=== PATIENT | male | born 1955 | race Asian ===

== ENCOUNTER 2019-06-16 22:27 | Emergency (ER) | payer BC, MEDICARE ==
[~2019-06-16] VITALS: Ht 167.6 cm; Wt 51.3 kg
--- NOTE | 2019-06-16 22:45 | Emergency Room Report ---
History of Present Illness General Chief Complaint: Abdominal Pain Source: Patient Present Illness HPI Patient presents with abdominal pain. It is been going on for many days. Has a history of stomach cancer and undergoing chemotherapy. He is due to have a CT of the abdomen tomorrow however the pain became unbearable tonight. He rates the pain 10/10 at this time and constant left lower quadrant nonradiating. He was able to move his bowels earlier today without any difficulty. He denies any dysuria or fevers or chills. There is no nausea or vomiting. He does have hydrocodone at home and they help the pain transiently but then comes back severely. No fevers, chills, sore throat, chest pain, palpitations, dysuria, shortness of breath, joint pain, rashes, depression, anxiety, visual changes, dizziness, headache. COVID-19 risk:Travel to affect: No Has patient experienced lee: No Allergies: Coded Allergies: No Known Allergies (Unverified , 06/16/19) Patient History Past Medical History: see triage record, other - Stomach cancer Social History: Denies: smoking Social History Narrative From home Reviewed Nursing Documentation: PMH: Agreed; PSxH: Agreed Nursing Documentation-PMH Hx Cancer: Yes - stomach Review of Systems All Other Systems: negative except mentioned in HPI Physical Exam Vital Signs Date Time Temp Pulse Resp B/P (MAP) Pulse Ox O2 Delivery O2 Flow Rate FiO2 06/16/19 22:29 97.9 67 18 131/82 (98) 98 Room Air Sp02 EP Interpretation: reviewed, normal General Appearance: well appearing, no apparent distress, GCS 15, thin Head: normocephalic, atraumatic Eyes: bilateral eye normal inspection, bilateral eye PERRL, bilateral eye EOMI ENT: moist mucus membranes Neck: supple Respiratory: lungs clear, normal breath sounds Cardiovascular #1: regular rate, rhythm Cardiovascular #2: 2+ radial (R) Gastrointestinal: normal inspection, normal bowel sounds, no mass, non- distended, no guarding, no rebound, tenderness - Diffuse, scaphoid Genitourinary: no CVA tenderness Musculoskeletal: back normal, normal range of motion, gait/station normal Neurologic: alert, oriented x3, grossly normal Psychiatric: mood/affect normal Skin: no rash, warm/dry Medical Decision Making Diagnostic Impression: Primary Impression: Abdominal pain Qualified Codes: R10.84 - Generalized abdominal pain Additional Impression: History of stomach cancer ER Course Patient with history of stomach cancer presents with pain out of control. Differential includes pain related to cancer, diverticulitis, appendicitis, gastritis, pancreatitis amongst others. Evaluation with EKG, chest x-ray, CT of the abdomen and pelvis with contrast, labs. Patient treated with IV hydration and analgesia. Patient is nontoxic at this time and well-hydrated. Patient placed on the monitor worker. Repeat abdominal exam is indicated. Currently the patient has a nonsurgical abdomen. EKG normal sinus rhythm nonspecific ST-T wave changes rate 63. Chest x-ray no infiltrates and normal. Labs with normal white count, CMP and lipase. Urinalysis clear. Delay for CT due to oral contrast. CT without surgical pathology at this time. See full results below. Discussed results with patient. Patient remarkably improved with hydration and analgesia. Abdomen rate remains soft pain is decreased. Discussed the need to take copies of CT and labs to his doctor tomorrow. No medical emergency at this time. Patient stable for outpatient observation and treatment. Laboratory Tests Test 06/16/19 00:56 06/16/19 23:00 Urine Color Pale yellow Urine Appearance Clear Urine pH 6 (4.5-8.0) Urine Specific [place] 1.010 (1.005-1.035) Urine Protein Negative (NEGATIVE) Urine Glucose (UA) Negative (NEGATIVE) Urine Ketones Negative (NEGATIVE) Urine Blood Negative (NEGATIVE) Urine Nitrite Negative (NEGATIVE) Urine Bilirubin Negative (NEGATIVE) Urine Urobilinogen Normal MG/DL (0.0-1.0) Urine Leukocyte Esterase Negative (NEGATIVE) White Blood Count 5.4 K/UL (4.8-10.8) Red Blood Count 3.68 M/UL (4.70-6.10) L Hemoglobin 11.7 G/DL (14.2-18.0) L Hematocrit 33.7 % (42.0-52.0) L Mean Corpuscular Volume 92 FL (80-99) Mean Corpuscular Hemoglobin 31.7 PG (27.0-31.0) H Mean Corpuscular Hemoglobin Concent 34.6 G/DL (32.0-36.0) Red Cell Distribution Width 14.6 % (11.6-14.8) Platelet Count 220 K/UL (150-450) Mean Platelet Volume 5.3 FL (6.5-10.1) L Neutrophils (%) (Auto) 53.1 % (45.0-75.0) Lymphocytes (%) (Auto) 34.4 % (20.0-45.0) Monocytes (%) (Auto) 9.1 % (1.0-10.0) Eosinophils (%) (Auto) 2.1 % (0.0-3.0) Basophils (%) (Auto) 1.4 % (0.0-2.0) Prothrombin Time 9.8 SEC (9.30-11.50) Prothrombin Time INR 0.9 (0.9-1.1) Activated Partial Thromboplast Time 28 SEC (23-33) Sodium Level 146 MMOL/L (136-145) H Potassium Level 4.0 MMOL/L (3.5-5.1) Chloride Level 109 MMOL/L (98-107) H Carbon Dioxide Level 30 MMOL/L (21-32) Anion Gap 7 mmol/L (5-15) Blood Urea Nitrogen 15 mg/dL (7-18) Creatinine 0.8 MG/DL (0.55-1.30) Estimated Glomerular Filtration Rate > 60 mL/min (>60) Glucose Level 100 MG/DL (74-106) Calcium Level 9.0 MG/DL (8.5-10.1) Total Bilirubin 0.2 MG/DL (0.2-1.0) Aspartate Amino Transferase (AST) 31 U/L (15-37) Alanine Aminotransferase (ALT) 23 U/L (12-78) Alkaline Phosphatase 67 U/L (46-116) Troponin I 0.000 ng/mL (0.000-0.056) Total Protein 7.3 G/DL (6.4-8.2) Albumin 3.7 G/DL (3.4-5.0) Globulin 3.6 g/dL Albumin/Globulin Ratio 1.0 (1.0-2.7) Lipase 129 U/L (73-393) EKG Diagnostic Results Rate: normal Rhythm: NSR ST Segments: no acute changes Rhythm Strip Diag. Results EP Interpretation: yes Rhythm: NSR, no PVC's, no ectopy Chest X-Ray Diagnostic Results Chest X-Ray Diagnostic Results : Chest X-Ray Ordered: Yes # of Views/Limited/Complete: 1 View Indication: Other EP Interpretation: Yes Interpretation: no consolidation, no effusion, no pneumothorax Impression: No acute disease Electronically Signed by: Electronically signed by Ady Han MD CT/MRI/US Diagnostic Results CT/MRI/US Diagnostic Results : Imaging Test Ordered: abd/pelvis Impression Moderate free fluid surrounding the liver. Otherwise normal liver, gallbladder bilateral kidneys, spleen. Atrophy of the pancreas. Fluid collection or mass at the superior aspect of the pancreatic border. There is a second similar small round structure medial to the first. This could represent lymphadenopathy or sequela of pancreatic cysts or neoplasm/metastatic disease. Normal bilateral adrenal glands. Unremarkable small bowel. Areas of scattered thickening of the wall throughout the colon consistent with colitis. Multilevel diverticulosis. Normal appendix. Mild free fluid in the pelvis. Degenerative disease in the spine. Last Vital Signs Date Time Temp Pulse Resp B/P (MAP) Pulse Ox O2 Delivery O2 Flow Rate FiO2 06/17/19 06:11 98.2 75 19 134/84 98 Room Air Status: improved Disposition: HOME, SELF-CARE Condition: Improved Referrals: NON PHYSICIAN (PCP) Ady Han MD Jun 16, 2019 22:45
[2019-06-16] MEDS ORDERED: Morphine Sulfate 4mg/ml Inj (IV USE ONLY) ONE (23:21)
[2019-06-16 23:35] VITALS: BP 137/87
[2019-06-17 04:44] LABS: BASOPHILS % (AUTO) 1.4 % (0.0-2.0); EOSINOPHILS % (AUTO) 2.1 % (0.0-3.0); HEMATOCRIT 33.7 % (42.0-52.0); HEMOGLOBIN 11.7 G/DL (14.2-18.0); LYMPHOCYTES % (AUTO) 34.4 % (20.0-45.0); MEAN CORPUSCULAR VOLUME 92 FL (80-99); MONOCYTES % (AUTO) 9.1 % (1.0-10.0); NEUTROPHILS % (AUTO) 53.1 % (45.0-75.0); PLATELET COUNT 220 K/UL (150-450); RED BLOOD COUNT 3.68 M/UL (4.70-6.10); RED CELL DISTRIBUTION WIDTH 14.6 % (11.6-14.8); WHITE BLOOD COUNT 5.4 K/UL (4.8-10.8)
[2019-06-17 04:45] LABS: ALANINE AMINOTRANSFERASE 23 U/L (12-78); ALBUMIN 3.7 G/DL (3.4-5.0); ALKALINE PHOSPHATASE 67 U/L (46-116); ANION GAP 7 mmol/L (5-15); ASPARTATE AMINO TRANSFERASE 31 U/L (15-37); BILIRUBIN,TOTAL 0.2 MG/DL (0.2-1.0); BLOOD UREA NITROGEN 15 mg/dL (7-18); CARBON DIOXIDE 30 MMOL/L (21-32); CHLORIDE 109 MMOL/L (98-107); CREATININE 0.8 MG/DL (0.55-1.30); SODIUM 146 MMOL/L (136-145)
[2019-06-17 04:47] LABS: INR 0.9 (0.9-1.1)
[2019-06-17 05:23] LABS: APPEARANCE,URINE CLEAR; COLOR,URINE PALE YELLOW; GLUCOSE, URINE (UA) NEGATIVE (NEGATIVE); KETONES,URINE NEGATIVE (NEGATIVE); PH,URINE 6 (4.5-8.0); PROTEIN,URINE NEGATIVE (NEGATIVE)
[2019-06-17 05:24] LABS: BILIRUBIN, URINE NEGATIVE (NEGATIVE); LEUKOCYTE ESTERASE ,URINE NEGATIVE (NEGATIVE); NITRITE,URINE NEGATIVE (NEGATIVE); UROBILINOGEN,URINE NORMAL MG/DL (0.0-1.0)
[2019-06-17 06:11] VITALS: BP 134/84
--- NOTE | 2019-06-17 06:11 | NUR ---
ER DISCHARGE NOTE: Patient is cleared to be discharged per ERMD, pt is aox4, on room air, with stable vital signs. pt was given dc, pt was able to verbalize understanding, pt id band and iv site removed without complications. pt is able to ambulate with steady gait. pt took all belongings. Patient states pain 9is 0/10.
--- NOTE | 2019-06-17 16:16 | Diagnostic Imaging Report ---
Indication: Dyspnea Comparison: None A single view chest radiograph was obtained. Findings: Left chest port in good position. Lungs are clear. Heart size is normal. Aorta mildly calcified. Bones are osteopenic. Calcination projected over the left lung base could be overlying within soft tissue or could be in the lung. IMPRESSION: No acute disease
--- NOTE | 2019-06-19 10:51 | Diagnostic Imaging Report ---
Clinical Indication: Abdominal pain Technique: Patient given oral contrast. IV administration nonionic contrast. Venous phase spiral acquisition obtained through the abdomen and pelvis. Multiplanar reconstructions were generated. Total dose length product 158 mGycm. CTDIvol(s) 3 mGy. Dose reduction achieved using automated exposure control Comparison: none Findings: The patient is status post total gastrectomy. There is a 2.2 cm mass with a peripheral enhancement and low-attenuation center just inferior to the anastomosis and just superior to the stomach. There is an adjacent 1.1 cm similar-appearing lesion. The distal esophagus is patulous, filled with contrast. Contrast has traversed approximately 50% of the small bowel. However, there is no evidence of small bowel dilatation or other findings to suggest small bowel obstruction. There is slight. Wall thickening of the descending colon, probably artifact of under distention The appendix is normal. There is colonic diverticulosis. No evidence of diverticulitis. There is a small amount of ascites fluid, seen in the pelvis and over the dome of the liver. The liver demonstrates subcentimeter low-attenuation lesions in segment 2 which are too small to characterize. The gallbladder, bile ducts, spleen, adrenals, kidneys are unremarkable. The pancreas is mildly atrophic. No retroperitoneal or mesenteric mass or adenopathy. No pelvic mass or adenopathy. There is mild generalized edema of the subcutaneous fat and mesenteric fat. The included lung bases demonstrate posterior dependent atelectatic changes. The bones demonstrate degenerative spondylosis changes. Impression: Trace ascites fluid Evidence of prior total gastrectomy 2.1 and 1.1 cm masses just inferior to the anastomosis and superior to the pancreas, suspicious for necrotic lymphadenopathy. Apparent mild wall thickening of the distal descending colon, most likely artifact of under distention but mild colitis also possible Mild edema of the mesenteric and subcutaneous fat Degenerative spondylosis Subcentimeter low-attenuation liver lesions, too small to characterize, most likely benign simple cysts or bile hamartomas Mildly atrophic pancreas The CT scanner at [facility] is accredited by the [employer] and the scans are performed using protocols designed to limit radiation exposure to as low as reasonably achievable to attain images of sufficient resolution adequate for diagnostic evaluation.
== END 2019-06-17 06:11 | disposition home or self-care (01) ==
LOC: EMR 22:42
DX: R10.84 Generalized abdominal pain (principal); Z85.028 Personal history of other malignant neoplasm of stomach
CPT/HCPCS: 36415; 71045; 74177; 80053; 81003; 83690; 84484; 85025; 85610; 85730; 86850; 86900; 86901; 93005; 99284; J2270; J2405; J7030; Q9967